=== PATIENT | female | born 1970 | race Caucasian/White ===

== ENCOUNTER 2020-01-14 14:11 | Inpatient (IN) | payer OTHER ==
[~2020-01-14] VITALS: Ht 165.1 cm; Wt 90.7 kg
[2020-01-22] MEDS ORDERED: LOW-OGESTREL-21 EACH PO (08:01)
[2020-01-22] MEDS ORDERED: PROFERRIN-FORT1 EACH PO (08:01)
[2020-01-22] MEDS ORDERED: ZITHROMAX500 MG PO (08:09)
== END 2020-01-22 11:16 | disposition home or self-care (01) | DRG 760 ==
LOC: ER 14:11 → OB/GYN 01-15 08:45
PROVIDERS: ADMIT Obstetrics & Gynecology; ATTEND Obstetrics & Gynecology
PROC: BW4GZZZ Ultrasonography of Pelvic Region (ICD-10-PCS; principal; 2020-01-15)
DX: D25.9 Leiomyoma of uterus, unspecified (principal); D62 Acute posthemorrhagic anemia; N93.8 Other specified abnormal uterine and vaginal bleeding; Z53.1 Procedure and treatment not carried out because of patient's decision for reasons of belief and group pressure; Z03.818 Encounter for observation for suspected exposure to other biological agents ruled out